=== PATIENT | male | born 1950 | race Caucasian/White ===

== ENCOUNTER 2016-09-11 15:25 | Emergency (ER) | payer OTHER ==
[~2016-09-11] VITALS: Ht 185.4 cm; Wt 74.6 kg
[~2016-09-11 15:25] MED LIST: ADVAIR 250/501 DISK IH; ALPRAZOLAM1 MG PO; AMBIEN CR6.25 MG PO; AMBIEN10 MG PO; ATARAX,VISTARIL50 MG PO; CIPRO500 MG PO; CLONAZEPAM0.5 MG; CLONAZEPAM0.5 MG PO; DAILY VALUE1 EACH PO; ERGOCALCIF50000 UNIT PO; HYDROCODON-ACE1 EAC7 PO; KENALOG,ARISTOC80 GM; LAMICTAL200 MG PO; LAMOTRIGINE100 MG PO; LAMOTRIGINE25 MG PO; LATUDA120 MG PO; LEVAQUIN500 MG PO; LISINOPRIL-HCT1 EAC3; LISINOPRIL-HCT1 EAC3 PO; LO-DOSE ASPIRIN81 M1 PO; LORAZEPAM1 MG; MOTRIN800 MG PO; NAPROXEN500 MG PO; NASACORT10.8 ML BOTH NARES; NICODERM CQ1 EAC1 TD; OMEPRAZOLE40 M1; OXYCODONE HCL15 MG; OXYCODONE HCL5 M1 PO; OXYCODONE HCL5 MG; OXYCODONE HCL5 MG PO; PERCOCET 5/31 TABLET PO; PRILOSEC40 MG PO; PRINIVIL10 MG PO; QUETIAPINE FUM100 MG; QUETIAPINE FUM200 MG PO; SEROQUEL PO; SEROQUEL200 MG PO; SEROQUEL400 MG PO; SEROQUEL50 MG PO; SERTRALINE HCL100 MG PO; SERTRALINE HCL25 MG; VENTOLIN HFA18 GM IH; XANAX0.5 MG PO; XANAX1 MG PO; ZESTORETIC 10-1 EAC1 PO; ZESTORETIC 20-1 EAC1 PO; ZOLOFT100 MG PO; ZOLPIDEM TARTRAT5 MG PO
[2016-09-11 16:44] LABS: HEMATOCRIT 40.2 % (38.0-50.0); MCH 30.2 PG (29.0-34.0); MCHC 33.3 G/DL (30.0-36.0); MCV 90.5 FL (86-99); MEAN PLAT.VOLUME 9.6 uM^3 (9.0-12.4); PLATELET COUNT 212 K/uL (156-360); RBC DIS.WIDTH-CV 14.6 % (11.8-14.6); RBC DIS.WIDTH-SD 47.2 % (39-53); RED BLOOD COUNT 4.44 M/uL (4.00-5.50); WHITE BLOOD COUNT 7.9 K/uL (4.1-10.2)
[2016-09-11 16:54] LABS: INTER. NORMALIZED RATIO 1.1; PROTHROMBIN TIME 10.9 (9.2-11.2); PTT 29.8 (25-32)
[2016-09-11 16:57] LABS: CHLORIDE 111 mEq/L (99-109); POTASSIUM 3.9 mEq/L (3.7-5.4); SODIUM 143 mEq/L (136-147)
[2016-09-11 16:59] LABS: GLUCOSE 92 mg/dL (70-99)
[2016-09-11 17:01] LABS: ANION GAP 10 MEQ/L (2-14)
[2016-09-11 17:03] LABS: GFR ESTIMATE (CALCULATED) > 59 mL/min/
[2016-09-11 17:04] LABS: UREA NITROGEN (BUN) 21 mg/dL (9-23)
[2016-09-11 17:07] LABS: TROP-I INTERPRETATION NEGATIVE; TROPONIN-I 0.02 ng/mL (0.0-0.30)
[2016-09-11 17:51] LABS: D-DIMER ELISA 0.99 mg/L FEU (< 0.57)
[2016-09-11 21:51] VITALS: BP 145/92
[2016-10-04] MEDS ORDERED: XANAX1 MG PO (13:50)
[2016-10-04] MEDS ORDERED: NEXIUM20 MG PO (13:50)
== END 2016-09-11 21:58 | disposition home or self-care (01) ==
LOC: EME 15:25
DX: R51 Headache (principal); Z91.81 History of falling; R91.1 Solitary pulmonary nodule; R79.1 Abnormal coagulation profile; I48.92 Unspecified atrial flutter; F17.200 Nicotine dependence, unspecified, uncomplicated
CPT/HCPCS: 70450; 71020; 71275; 80048; 84484; 85027; 85379; 85610; 85730; 93005; 99281; 99285; J2060; J7030

== ENCOUNTER → 2016-10-08 | Outpatient (CLI) | payer OTHER ==
[~2016-10-08] MED LIST changes: +CLOBETASOL PROP60 G1 TP; +HYDROXYZINE HCL50 MG PO; +NEXIUM20 MG PO
== END | disposition home or self-care (01) ==
LOC: OPR 09:45 → EDSTATUS 10:00 → OPR 10:00
PROC: BB27ZZZ Computerized Tomography (CT Scan) of Right Tracheobronchial Tree (ICD-10-PCS; principal; 2016-10-08)
DX: R91.1 Solitary pulmonary nodule (principal); Z53.09 Procedure and treatment not carried out because of other contraindication
CPT/HCPCS: 71250; J3010

== ENCOUNTER 2016-10-10 15:10 | Inpatient (IN) | payer OTHER ==
[~2016-10-10] VITALS: Ht 185.4 cm; Wt 79.4 kg
[~2016-10-10 15:10] MED LIST changes: -CLOBETASOL PROP60 G1 TP; -HYDROXYZINE HCL50 MG PO
[2016-10-10 16:47] LABS: ADD MEDTOX COMMENT Y; AMPHETAMINE NEGATIVE (500 ng/mL); BARBITURATES NEGATIVE (200 ng/mL); BENZODIAZEPINES PRESUMPTIVE POSITIVE (150 ng/mL); COCAINE NEGATIVE (150 ng/mL); INTERNAL CONTROLS VALID? YES; METHADONE NEGATIVE (200 ng/mL); METHAMPHETAMINE NEGATIVE (500 ng/mL); OPIATES (MORPHINE) NEGATIVE (100 ng/mL); OXYCODONE NEGATIVE (100 ng/mL); PHENCYCLIDINE NEGATIVE (25 ng/mL); PROPOXYPHENE NEGATIVE (300 ng/mL); THC CANNABINOIDS NEGATIVE (50 ng/mL); TRICYCLIC ANTIDEPRESSANTS NEGATIVE (300 ng/mL)
[2016-10-10 16:55] LABS: HEMATOCRIT 42.6 % (38.0-50.0); MCH 29.6 PG (29.0-34.0); MCHC 32.4 G/DL (30.0-36.0); MCV 91.4 FL (86-99); MEAN PLAT.VOLUME 9.6 uM^3 (9.0-12.4); PLATELET COUNT 242 K/uL (156-360); RBC DIS.WIDTH-CV 14.6 % (11.8-14.6); RBC DIS.WIDTH-SD 49.4 % (39-53); RED BLOOD COUNT 4.66 M/uL (4.00-5.50)
[2016-10-10 16:59] LABS: WHITE BLOOD COUNT 5.5 K/uL (4.1-10.2)
[2016-10-10 17:07] LABS: CHLORIDE 110 mEq/L (99-109); POTASSIUM 4.3 mEq/L (3.7-5.4); SODIUM 145 mEq/L (136-147)
[2016-10-10 17:08] LABS: GLUCOSE 84 mg/dL (70-99)
[2016-10-10 17:10] LABS: ANION GAP 12 MEQ/L (2-14)
[2016-10-10 17:12] LABS: GFR ESTIMATE (CALCULATED) > 59 mL/min/; SERUM ETHYL ALCOHOL 95 mg/dL
[2016-10-10 17:14] LABS: UREA NITROGEN (BUN) 20 mg/dL (9-23)
[2016-10-10 17:15] LABS: SALICYLATE < 5.0 MG/DL (15-30)
[2016-10-10 17:20] LABS: BENZODIAZEPINES QUANT VALUE 0 NG/ML
[2016-10-10 17:33] LABS: BENZODIAZEPINES, URINE SCREEN Negative (200 ng/mL)
[2016-10-10] MEDS ORDERED: HYDROXYZINE HCL50 MG PO (18:35)
[2016-10-10] MEDS ORDERED: CLOBETASOL PROP60 G1 TP (18:37)
[2016-10-10 19:56] VITALS: BP 132/90
[2016-10-11 07:48] VITALS: BP 138/87
[2016-10-11 15:26] VITALS: BP 172/97
[2016-10-12 07:51] VITALS: BP 130/84
[2016-10-12 15:31] VITALS: BP 170/108
[2016-10-13 07:56] VITALS: BP 124/81
[2016-10-13 15:24] VITALS: BP 128/85
[2016-10-14 08:01] VITALS: BP 136/89
[2016-10-14 15:57] VITALS: BP 131/88
[2016-10-15 07:56] VITALS: BP 124/80
[2016-10-15 14:55] VITALS: BP 128/63
[2016-10-16 07:26] VITALS: BP 154/84
[2016-10-16] MEDS ORDERED: ESCITALOPRAM OX10 MG PO (09:17)
[2016-10-16] MEDS ORDERED: LISINOPRIL5 MG PO (09:17)
[2016-10-16] MEDS ORDERED: LITHIUM CARBON450 MG PO (09:17)
[2016-10-16] MEDS ORDERED: SEROQUEL400 MG PO (09:17)
== END 2016-10-16 10:18 | disposition home or self-care (01) | DRG 885 ==
LOC: EME → EDBD 15:10 → 1WEST 17:37 → EDOF 17:37 → 1WEST 19:50
PROVIDERS: Emergency Medicine
DX: F33.9 Major depressive disorder, recurrent, unspecified (principal); R45.851 Suicidal ideations; Z91.19 Patient's noncompliance with other medical treatment and regimen; G47.00 Insomnia, unspecified; I10 Essential (primary) hypertension; F10.20 Alcohol dependence, uncomplicated
CPT/HCPCS: 71250; 80048; 80178; 84999; 85027; 90837; 97150 GO; 97166 GO; 99281; 99285; G0480; J3010

== ENCOUNTER 2016-10-30 16:11 | Emergency (ER) | payer OTHER ==
[~2016-10-30] VITALS: Ht 185.4 cm; Wt 76.4 kg
[~2016-10-30 16:11] MED LIST changes: +CLOBETASOL PROP60 G1 TP; +ESCITALOPRAM OX10 MG PO; +HYDROXYZINE HCL50 MG PO; +LISINOPRIL5 MG PO; +LITHIUM CARBON450 MG PO
[2016-10-30 18:57] LABS: HEMATOCRIT 40.3 % (38.0-50.0); MCH 30.7 PG (29.0-34.0); MCHC 33.3 G/DL (30.0-36.0); MCV 92.2 FL (86-99); MEAN PLAT.VOLUME 10.5 uM^3 (9.0-12.4); PLATELET COUNT 197 K/uL (156-360); RBC DIS.WIDTH-CV 15.2 % (11.8-14.6); RBC DIS.WIDTH-SD 51.8 % (39-53); RED BLOOD COUNT 4.37 M/uL (4.00-5.50); WHITE BLOOD COUNT 8.9 K/uL (4.1-10.2)
[2016-10-30 19:01] LABS: CHLORIDE 101 mEq/L (99-109); POTASSIUM 3.9 mEq/L (3.7-5.4); SODIUM 135 mEq/L (136-147)
[2016-10-30 19:03] LABS: GLUCOSE 95 mg/dL (70-99)
[2016-10-30 19:04] LABS: ANION GAP 14 MEQ/L (2-14)
[2016-10-30 19:05] LABS: TOTAL BILIRUBIN 0.5 mg/dL (0.0-1.0)
[2016-10-30 19:06] LABS: SERUM ETHYL ALCOHOL 95 mg/dL
[2016-10-30 19:07] LABS: ALKALINE PHOSPHATASE 97 IU/L (3-129); GFR ESTIMATE (CALCULATED) 54 mL/min/
[2016-10-30] MEDS ORDERED: CLOZARIL100 MG PO ×2 (19:07→19:11)
[2016-10-30 19:08] LABS: UREA NITROGEN (BUN) 26 mg/dL (9-23)
[2016-10-30] MEDS ORDERED: LISINOPRIL5 MG PO (21:04)
[2016-10-30] MEDS ORDERED: LEXAPRO10 MG PO (21:06)
[2016-10-30 23:04] LABS: ADD MIUA? YES; BILIRUBIN NEGATIVE; BLOOD NEGATIVE; COLOR YELLOW ((YELLOW)); GLUCOSE (STRIP) NEGATIVE; KETONES NEGATIVE; LEUKOCYTES NEGATIVE; NITRITE NEGATIVE; PROTEIN (STRIP) 30; UROBILINOGEN 0.2 MG/DL (0.2-1.0)
[2016-10-30 23:26] LABS: BACTERIA NONE SEEN /HPF; EPITHELIAL CELLS NONE SEEN /HPF; GRANULAR CASTS 0-5 /LPF; MUCUS TRACE /LPF; RED BLOOD CELLS 0-5 /HPF (0-5); UCUL ADDED? NO; WHITE BLOOD CELLS 0-5 /HPF (0-5)
[2016-10-30 23:30] LABS: AMPHETAMINE NEGATIVE (500 ng/mL); BARBITURATES NEGATIVE (200 ng/mL); BENZODIAZEPINES PRESUMPTIVE POSITIVE (150 ng/mL); COCAINE NEGATIVE (150 ng/mL); INTERNAL CONTROLS VALID? YES; METHADONE NEGATIVE (200 ng/mL); METHAMPHETAMINE NEGATIVE (500 ng/mL); OPIATES (MORPHINE) PRESUMPTIVE POSITIVE (100 ng/mL); OXYCODONE NEGATIVE (100 ng/mL); PHENCYCLIDINE NEGATIVE (25 ng/mL); PROPOXYPHENE NEGATIVE (300 ng/mL); THC CANNABINOIDS NEGATIVE (50 ng/mL); TRICYCLIC ANTIDEPRESSANTS PRESUMPTIVE POSITIVE (300 ng/mL)
[2016-10-30 23:31] LABS: ADD MEDTOX COMMENT Y
[2016-10-31] LABS: BENZODIAZEPINES QUANT VALUE 0 NG/ML
[2016-10-31 00:02] LABS: BENZODIAZEPINES, URINE SCREEN Negative (200 ng/mL)
[2016-10-31 00:31] VITALS: BP 127/91
== END 2016-10-31 01:23 ==
LOC: EME 16:11
PROVIDERS: Emergency Medicine
DX: F33.3 Major depressive disorder, recurrent, severe with psychotic symptoms (principal); F10.20 Alcohol dependence, uncomplicated; R45.851 Suicidal ideations; F20.9 Schizophrenia, unspecified; Y90.6 Blood alcohol level of 120-199 mg/100 ml; I10 Essential (primary) hypertension; J45.909 Unspecified asthma, uncomplicated; F31.9 Bipolar disorder, unspecified; B18.2 Chronic viral hepatitis C; F17.200 Nicotine dependence, unspecified, uncomplicated
CPT/HCPCS: 80053; 80178; 81003; 84999; 85027; 90837; 99281; 99285; G0480

== ENCOUNTER → 2016-11-07 | Outpatient (CLI) | payer OTHER ==
[~2016-11-07] MED LIST changes: +CLOZARIL100 MG PO; +LEXAPRO10 MG PO
== END | disposition home or self-care (01) ==
LOC: PICC 08:54
DX: I99.8 Other disorder of circulatory system (principal)
CPT/HCPCS: 76937

== ENCOUNTER 2017-02-11 14:28 | Emergency (ER) | payer OTHER ==
[~2017-02-11] VITALS: Ht 185.4 cm; Wt 77.9 kg
[2017-02-11 17:07] LABS: HEMATOCRIT 38.7 % (38.0-50.0); MCHC 34.4 G/DL (30.0-36.0); MCV 93.3 FL (86-99); MEAN PLAT.VOLUME 10.4 uM^3 (9.0-12.4); PLATELET COUNT 179 K/uL (156-360); RBC DIS.WIDTH-CV 15.2 % (11.8-14.6); RBC DIS.WIDTH-SD 52.1 % (39-53); RED BLOOD COUNT 4.15 M/uL (4.00-5.50); WHITE BLOOD COUNT 6.7 K/uL (4.1-10.2)
[2017-02-11 17:20] LABS: CHLORIDE 107 mEq/L (99-109); POTASSIUM 4.1 mEq/L (3.7-5.4); SODIUM 146 mEq/L (136-147)
[2017-02-11 17:21] LABS: GLUCOSE 82 mg/dL (70-99)
[2017-02-11 17:23] LABS: ANION GAP 14 MEQ/L (2-14)
[2017-02-11 17:24] LABS: SERUM ETHYL ALCOHOL 228 mg/dL
[2017-02-11 17:25] LABS: GFR ESTIMATE (CALCULATED) > 59 mL/min/
[2017-02-11 17:27] LABS: UREA NITROGEN (BUN) 20 mg/dL (9-23)
[2017-02-11 17:28] LABS: SALICYLATE < 5.0 MG/DL (15-30)
[2017-02-12 00:08] LABS: ADD MEDTOX COMMENT Y; AMPHETAMINE NEGATIVE (500 ng/mL); BARBITURATES NEGATIVE (200 ng/mL); BENZODIAZEPINES PRESUMPTIVE POSITIVE (150 ng/mL); COCAINE NEGATIVE (150 ng/mL); INTERNAL CONTROLS VALID? YES; METHADONE NEGATIVE (200 ng/mL); METHAMPHETAMINE NEGATIVE (500 ng/mL); OPIATES (MORPHINE) NEGATIVE (100 ng/mL); OXYCODONE NEGATIVE (100 ng/mL); PHENCYCLIDINE NEGATIVE (25 ng/mL); PROPOXYPHENE NEGATIVE (300 ng/mL); THC CANNABINOIDS NEGATIVE (50 ng/mL); TRICYCLIC ANTIDEPRESSANTS NEGATIVE (300 ng/mL)
[2017-02-12] MEDS ORDERED: AMBIEN5 MG PO (00:39)
[2017-02-12] MEDS ORDERED: SEROQUEL400 MG PO (00:40)
[2017-02-12] MEDS ORDERED: DEPAKOTE ER500 MG PO (00:41)
[2017-02-12] MEDS ORDERED: XANAX0.5 MG PO (00:41)
[2017-02-12] MEDS ORDERED: LEXAPRO20 MG PO (00:41)
[2017-02-12] MEDS ORDERED: ULTRAM50 MG PO (00:42)
[2017-02-12 01:51] LABS: BENZODIAZEPINES QUANT VALUE 0 NG/ML; BENZODIAZEPINES, URINE SCREEN Negative (200 ng/mL)
[2017-02-12 02:59] VITALS: BP 130/86
== END 2017-02-12 03:12 ==
LOC: EME 14:28
PROVIDERS: Emergency Medicine
DX: R45.851 Suicidal ideations (principal); F33.3 Major depressive disorder, recurrent, severe with psychotic symptoms; F10.99 Alcohol use, unspecified with unspecified alcohol-induced disorder; I10 Essential (primary) hypertension; Y90.7 Blood alcohol level of 200-239 mg/100 ml; F17.200 Nicotine dependence, unspecified, uncomplicated
CPT/HCPCS: 80048; 84999; 85027; 90837; 99281; 99285; G0480

== ENCOUNTER → 2017-02-13 | Outpatient (CLI) | payer OTHER ==
[~2017-02-13] MED LIST changes: +AMBIEN5 MG PO; +DEPAKOTE ER500 MG PO; +LEXAPRO20 MG PO; +ULTRAM50 MG PO
== END | disposition home or self-care (01) ==
LOC: RAD 15:01
DX: J98.8 Other specified respiratory disorders (principal)
CPT/HCPCS: 71020

== ENCOUNTER → 2017-02-13 | Outpatient (CLI) | payer OTHER | END | disposition home or self-care (01) | LOC: PICC 13:00 | DX: I99.8 Other disorder of circulatory system (principal) | CPT/HCPCS: 76937; C1894 ==